=== PATIENT | male | born 1960 | race Caucasian/White ===

== ENCOUNTER 2020-10-26 12:31 | Emergency (ER) | payer MEDICARE, OTHER ==
[~2020-10-26] VITALS: Ht 157.5 cm; Wt 57.8 kg
[2020-10-26] MEDS ORDERED: AMLO10TA55 PO (13:02)
[2020-10-26] MEDS ORDERED: ATOR40TA71 PO (13:02)
[2020-10-26] MEDS ORDERED: HYDR-4174 PO (13:02)
[2020-10-26] MEDS ORDERED: TAMS-13 PO (13:02)
[2020-10-26] MEDS ORDERED: CLOP75TA32 PO (13:02)
[2020-10-26 13:41] LABS: HEMOGLOBIN 11.6 g/dL (13.5-17.5)
[2020-10-26 13:44] VITALS: BP 161/72
[2020-10-26 13:44] LABS: EOSINOPHILS % (AUTO) 2.1 % (1.0-6.0); HEMATOCRIT 34.9 % (41-53); LYMPHOCYTES # (AUTO) 0.6 K/uL (1.0-4.8); LYMPHOCYTES % (AUTO) 18.4 % (22.0-44.0); MEAN CORPUSCULAR HEMOGLOBIN 33.3 pg (26.0-34.0); MEAN CORPUSCULAR HGB CONC 33.4 G/dL (31.0-37.0); MEAN CORPUSCULAR VOLUME 100 fL (80-100); MONOCYTES # (AUTO) 0.4 K/uL (0.1-1.0); MONOCYTES % (AUTO) 10.5 % (2.0-9.0); NEUTROPHILS # (AUTO) 2.4 K/uL (1.8-7.7); PLATELET COUNT (AUTO) 132 K/uL (150-450); RED BLOOD CELL COUNT(AUTO) 3.49 MIL/uL (4.50-5.90); RED CELL DISTRIBUTION WIDTH 13.9 % (11.5-14.5)
[2020-10-26 13:46] LABS: COVID AG,FIA SOURCE NASAL SWAB
[2020-10-26 13:51] LABS: CALCIUM, TOTAL 9.1 mg/dL (8.8-10.5); CREATININE 6.32 mg/dL (0.60-1.30); POTASSIUM 4.5 mmol/L (3.5-5.1)
[2020-10-26 13:53] LABS: INR 1.1 (0.9-1.1); PROTHROMBIN TIME 11.4 SEC (9.4-11.6)
[2020-10-26 14:15] LABS: ALBUMIN 4.1 g/dL (3.4-5.0); BILIRUBIN,TOTAL 0.5 mg/dL (0.1-1.0); TOTAL PROTEIN, SERUM 7.2 g/dL (6.4-8.2)
== END 2020-10-26 15:00 | disposition home or self-care (01) ==
LOC: EMS 12:31
DX: N18.6 End stage renal disease (principal); Z99.2 Dependence on renal dialysis; E78.00 Pure hypercholesterolemia, unspecified; I10 Essential (primary) hypertension; Z79.01 Long term (current) use of anticoagulants; Z79.899 Other long term (current) drug therapy; Z20.822 Contact with and (suspected) exposure to COVID-19
CPT/HCPCS: 71045; 80053; 82550; 83880; 84484; 85025; 85610; 85730; 87426; 93005; 99285; 36415-L1; 36415-TC

== ENCOUNTER 2020-12-25 21:23 | Emergency (ER) | payer MEDICARE, OTHER ==
[~2020-12-25] VITALS: Ht 165.1 cm; Wt 58.0 kg
[~2020-12-25 21:23] MED LIST: AMLO10TA55 PO; ATOR40TA71 PO; CLOP75TA32 PO; HYDR-4174 PO; TAMS-13 PO
[2020-12-25 22:59] LABS: BASOPHILS % (AUTO) 0.6 % (0.0-2.0); EOSINOPHILS % (AUTO) 0.8 % (1.0-6.0); HEMATOCRIT 28.9 % (41-53); HEMOGLOBIN 9.9 g/dL (13.5-17.5); LYMPHOCYTES # (AUTO) 0.6 K/uL (1.0-4.8); LYMPHOCYTES % (AUTO) 18.4 % (22.0-44.0); MEAN CORPUSCULAR HEMOGLOBIN 33.4 pg (26.0-34.0); MEAN CORPUSCULAR HGB CONC 34.3 G/dL (31.0-37.0); MEAN CORPUSCULAR VOLUME 98 fL (80-100); MONOCYTES # (AUTO) 0.3 K/uL (0.1-1.0); MONOCYTES % (AUTO) 9.1 % (2.0-9.0); NEUTROPHILS # (AUTO) 2.4 K/uL (1.8-7.7); NEUTROPHILS % (AUTO) 71.1 % (40.0-70.0); PLATELET COUNT (AUTO) 161 K/uL (150-450); RED BLOOD CELL COUNT(AUTO) 2.96 MIL/uL (4.50-5.90); RED CELL DISTRIBUTION WIDTH 15.6 % (11.5-14.5)
[2020-12-25 23:06] LABS: CALCIUM, TOTAL 8.5 mg/dL (8.8-10.5); CREATININE 4.98 mg/dL (0.60-1.30); POTASSIUM 4.2 mmol/L (3.5-5.1)
[2020-12-25 23:13] LABS: ALBUMIN 3.6 g/dL (3.4-5.0); BILIRUBIN,TOTAL 0.4 mg/dL (0.1-1.0); TOTAL PROTEIN, SERUM 6.8 g/dL (6.4-8.2)
[2020-12-26 00:14] LABS: APPEARANCE,URINE CLEAR (CLEAR); BILIRUBIN,URINE NEGATIVE (NEGATIVE); GLUCOSE, URINE (UA) 100 mg/dL (NEGATIVE); KETONES,URINE NEGATIVE (NEGATIVE); LEUKOCYTE ESTERASE ,URINE NEGATIVE (NEGATIVE); NITRATE,URINE NEGATIVE (NEGATIVE); OCCULT BLOOD,URINE MODERATE (NEGATIVE); PROTEIN,URINE SEE CONFIRM (NEGATIVE); UROBILINOGEN,URINE 0.2 mg/dL (<=1.0)
[2020-12-26 00:26] LABS: SULFOSALICYLIC ACID,URINE 4+ (Negative)
[2020-12-26 00:36] LABS: BACTERIA,URINE None Seen /HPF (None Seen); WBC,URINE 0-2 /HPF (0-5)
[2020-12-26 00:48] VITALS: BP 196/70
== END 2020-12-26 02:12 | disposition home or self-care (01) ==
LOC: EMS 21:32
DX: R33.9 Retention of urine, unspecified (principal); N18.6 End stage renal disease; Z99.2 Dependence on renal dialysis; Z86.73 Personal history of transient ischemic attack (TIA), and cerebral infarction without residual deficits
CPT/HCPCS: 51702; 80053; 81001; 81002; 85025; 99284

== ENCOUNTER 2025-02-24 16:18 | Emergency (ER) | payer MEDICARE, OTHER ==
[~2025-02-24] VITALS: Ht 157.5 cm; Wt 58.3 kg
[~2025-02-24 16:18] MED LIST changes: -HYDR-4174 PO; +HYDR50TA37 PO; -TAMS-13 PO; +TAMS0.4C94 PO
[2025-02-24 16:29] VITALS: TEMP 98
[2025-02-24 16:58] LABS: PLATELET COUNT (AUTO) 219 K/uL (150-450); RED BLOOD CELL COUNT(AUTO) 2.81 MIL/uL (4.50-5.90); RED CELL DISTRIBUTION WIDTH 15.5 % (11.5-14.5); WHITE BLOOD COUNT (AUTO) 7.0 K/uL (4.5-11.0)
[2025-02-24 17:07] LABS: CALCIUM, TOTAL 8.6 mg/dL (8.8-10.5); CREATININE 5.22 mg/dL (0.60-1.30); GLOMERULAR FILTR. RATE CALC 11 mL/min (>60); GLUCOSE,RANDOM 206 mg/dL (70-110); SODIUM SERUM 131 mmol/L (136-145); UREA NITROGEN, BLOOD 31 mg/dL (7-18)
[2025-02-24 17:15] LABS: TROPONIN I-HIGH SENSITIVITY 41 ng/L (<76)
[2025-02-24 19:13] VITALS: BP 113/58; PULSE 85; RESP 18; O2SAT 95
== END 2025-02-24 19:15 | disposition home or self-care (01) ==
LOC: EMS 16:18
DX: T82.9XXA Unspecified complication of cardiac and vascular prosthetic device, implant and graft, initial encounter (principal); I12.0 Hypertensive chronic kidney disease with stage 5 chronic kidney disease or end stage renal disease; N18.6 End stage renal disease; Z79.02 Long term (current) use of antithrombotics/antiplatelets; Z86.73 Personal history of transient ischemic attack (TIA), and cerebral infarction without residual deficits; Z99.2 Dependence on renal dialysis; Z79.899 Other long term (current) drug therapy; Y83.2 Surgical operation with anastomosis, bypass or graft as the cause of abnormal reaction of the patient, or of later complication, without mention of misadventure at the time of the procedure
CPT/HCPCS: 80048; 84484; 85025; 85610; 99283